=== PATIENT | female | born 1995 | race African-American/Black ===

== ENCOUNTER 2018-07-15 19:33 | Observation (INO) | payer OTHER ==
[~2018-07-15] VITALS: Ht 165.1 cm; Wt 68.5 kg
[2018-07-15] MEDS ORDERED: FERR325T23 GT (20:25)
[2018-07-15] MEDS ORDERED: PNV1TABL50 PO (20:25)
== END 2018-07-15 20:45 | disposition home or self-care (01) ==
LOC: L&D 19:33
PROVIDERS: ADMIT Obstetrics & Gynecology; ATTEND Obstetrics & Gynecology
DX: O36.8130 Decreased fetal movements, third trimester, not applicable or unspecified (principal); O62.9 Abnormality of forces of labor, unspecified; Z3A.35 35 weeks gestation of pregnancy
CPT/HCPCS: 99281; G0378